=== PATIENT | female | born 1980 | race Caucasian/White ===

== ENCOUNTER 2016-07-27 21:02 | Emergency (ER) | payer OTHER ==
[~2016-07-27] VITALS: Ht 149.9 cm; Wt 90.0 kg
[~2016-07-27 21:02] MED LIST: ATEN25TA PO; CHOL100045 PO; CLARITIN-D PO; DULO30CA50 PO; FLUT9.9S NS; KETO120S TP; NPR500T PO; TRAM50TA2 PO
[2016-07-27 21:06] VITALS: BP 145/104; PULSE 84; RESP 20; O2SAT 98
--- NOTE | 2016-07-27 22:41 | ED.REPORT ---
HPI-Abd Pain F Under 40 Date of Service Jul 27, 2016 ED Provider: Bruno Dumont MD 35 year old female with a history of kidney stones presents to the ER complaining of constant burning left back pain onset yesterday. Pain is different to that associated with prior kidney stones. Patient denies dysuria and other urinary symptoms, nausea, vomiting, cough, lower extremity swelling, and bowel symptoms. Nursing Notes Stated Complaint: LEFT BACK/KIDNEY PAIN Chief Complaint: Female Abdominal Pain Nursing Notes Reviewed: Yes Allergies: Coded Allergies: neomycin (Verified Adverse Reaction, Severe, burning, 04/28/16) Scheduled ([Claritin-D]) 1 TAB PO DAILY Atenolol (Atenolol) 25 Mg Tablet 25 MG PO DAILY Cholecalciferol (Vitamin D3) (Vitamin D) 1,000 Unit Capsule 1,000 UNIT PO DAILY Duloxetine (Duloxetine) 30 Mg Capsule.dr 30 MG PO DAILY Fluticasone Propionate (Flonase Allergy Relief) 50 Mcg/Actuation [place].susp 9.9 ML NS DAILY Ketoconazole (Nizoral) 120 Ml Shampoo 120 ML TP 2X/WEEK Scheduled PRN Cyclobenzaprine (Cyclobenzaprine) 10 Mg Tablet 10 MG PO TID PRN PRN Spasm Naproxen (Naproxen) 500 Mg Tab 500 MG PO BID PRN PRN For Pain Naproxen (Naprosyn) 500 Mg Tablet 500 MG PO BID PRN PRN For Pain Tramadol (Tramadol) 50 Mg Tablet 50 MG PO Q12H PRN PRN For Pain General Time Seen by MD: 22:40 Chief Complaint Flank pain left, Other (Left Back Pain) Hx Obtained From: Patient Arrived By: Walk-in Sudden in Onset?: No Onset Occurred: Yesterday Symptom Duration: Since onset Location: : Back (Left Lower) Quality: Burning, Painful Severity: Current: Moderate Severity: Maximum: Moderate Associated with: Denies: Constipation, Diarrhea, Dysuria, Urinary frequency, Urinary retention, Urinary tract symptoms Pertinent Negative: Pt denies other symptoms Similar Sx Previous: No Past Medical History Past Medical History Migraine headahces Anxiety rotator cuff syndrome arthritis golf and tennis elbow Kidney stones Reports: Hypertension Past Surgical History None Smoking History Never Smoker Social History Alcohol Use: Denies alcohol use Drug Use: Denies drug use Other Social History: , Local resident Occupation 01/27/2016 no work or school Ambulatory Status Independent Review of Systems Constitutional: Denies: Chills, Fever Respiratory: Denies: Non-productive cough, Shortness of breath GI: Denies: Constipation, Diarrhea, Nausea, Vomiting Female: Denies: Dysuria, Flank pain, Hematuria, Incontinence, Pelvic pain, Urinary frequency, Urinary urgency Musculoskeletal: Reports: Back pain (Left) Complete sys rev & neg: except as marked. Physical Exam Initial Vital Signs Vital Signs (First) Date Time Temp Pulse Resp B/P Pulse Ox O2 Delivery O2 Flow Rate FiO2 07/27/16 21:06 36.6 84 20 145/104 98 07/28/16 02:05 Room Air Initial VS: Reviewed Head / Eyes: Atraumatic, Normocephalic Neck: Supple, Non-tender, Full range of motion Extremities: Vascular intact, Neuro intact, No swelling, No tenderness Skin: Warm, Dry, No cyanosis Neurologic: Alert, Oriented, Nonfocal Psychiatric: Mood/affect normal, Behavior normal, Normal thought content General/Constitutional: Awake, Alert, Well developed, Well nourished Respiratory / Chest: Breath sounds NL, Breath sounds = bilat, No respiratory distress, No rales, No rhonchi, No wheezing Cardiovascular: Heart rate NL, Regular rhythm, Heart sounds NL, Peripheral circulation NL Abdomen: Soft, Non-tender, No guarding, No rebound, No distention Back: Full range of motion, No midline vertebral tend Left back office medical assistant to superficial palpation. No rash, no swelling, no bruising. Interpretation & Diagnostics Lab Results Interpretation Result Diagram: 07/27/16 2350 07/27/16 2350 Test 07/27/16 22:47 07/27/16 23:50 07/28/16 00:30 Urine Color Yellow (YELLOW) Urine Appearance Hazy (CLEAR,HAZY) Urine pH 6.0 (5.0-8.0) Urine Specific [place] 1.025 (1.003-1.035) Urine Protein Negativemg/dL (NEG,TRACE) Urine Glucose (UA) Negativemg/dL (NEGATIVE) Urine Ketones Tracemg/dL (NEGATIVE) Urine Occult Blood Trace (NEGATIVE) Urine Nitrite Negative (NEGATIVE) Urine Bilirubin Negative (NEGATIVE) Urine Urobilinogen Normalmg/dL (NORMAL) Urine Leukocyte Esterase Negative (NEGATIVE) Urine RBC 3-10/hpf (0-2) Urine WBC 0-5/hpf (0-5) Urine Epithelial Cells Moderate/hpf (NONE-MOD) Urine Crystals None seen (NONE SEEN) Urine Bacteria None/hpf (NONE-FEW) Urine Hyaline Casts None/lpf (NONE) Urine Granular Casts None seen (NONE SEEN) Urine Waxy Casts None seen (NONE SEEN) Urine Red Blood Cell Casts None seen (NONE SEEN) Urine White Blood Cell Casts None seen (NONE SEEN) Urine Mucus Present (None Seen) Urine Trichomonas None seen (NONE SEEN) Urine Yeast None (NONE SEEN) Urine Culture Reflexed Not indicated White Blood Count 10.0th/mm3 (3.8-10.1) Red Blood Count 4.37mil/mm3 (3.90-5.20) Hemoglobin 13.5g/dL (12.0-15.6) Hematocrit 38.6% (35.0-46.0) Mean Corpuscular Volume 88.3fL (81-100) Mean Corpuscular Hemoglobin 30.9pg (27.0-35.0) Mean Corpuscular Hemoglobin Concent 35.0% (32.0-37.0) Red Cell Distribution Width 13.3% (12.3-15.4) Platelet Count 313bil/L (150-400) Neutrophils (%) (Auto) 53.7% (40-74) Lymphocytes (%) (Auto) 37.7% (14-46) Monocytes (%) (Auto) 6.5% (4-12) Eosinophils (%) (Auto) 1.6% (0-5) Basophils (%) (Auto) 0.2% (0-3) Sodium Level 137mEq/L (134-144) Potassium Level 3.2mEq/L (3.5-5.2) Chloride Level 99mEq/L (97-108) Carbon Dioxide Level 22mmol/L (18-29) Blood Urea Nitrogen 10mg/dL (6-20) Creatinine 0.61mg/dL (0.57-1.00) Estimat Glomerular Filtration Rate 162mL/min (>59) Glucose Level 162mg/dL (60-99) Lactic Acid Level 1.9mmol/L (0.4-2.0) Calcium Level 9.1mg/dL (8.5-10.1) Magnesium Level 2.1mg/dL (1.6-2.6) Total Bilirubin 0.2mg/dL (0.0-1.2) Aspartate Amino Transf (AST/SGOT) 15U/L (0-50) Alanine Aminotransferase (ALT/SGPT) 8U/L (0-32) Alkaline Phosphatase 71U/L (25-150) Total Protein 7.8g/dL (6.4-8.4) Albumin 4.1g/dL (3.4-5.0) Lipase 20U/L (13-60) Prothrombin Time 10.2sec (8.1-12.5) Prothromb Time International Ratio 0.95ratio ECG Interpretation ECG Interpretation: Sinus rhythm, rate 76 Time: 23:14 Interpreted by: ED physician X-Ray Chest Interpretation Chest Xray Interpretation: Negative. View: AP & lat Interpretation / Wet Read by: Wet read ED physician CT Abd / Pelvis Interpretation CONCLUSION: Cyst measuring 2.8cm left ovary. Hysterectomy. Electronically signed by Robi Steele MD Study type: Abdominal CT no contrast Interpretation / Wet Read by: Interpret - Radiologist Re-Eval/Medical Decision Med Decision/Clinical Course Med Decision/Clinical Course: 35-year-old female with left flank pain and is quite superficial. She has a trace of blood in her urine, but it completely negative CT. Exam would suggest this is musculoskeletal in origin. Prior history of stones and hematuria prompted the scan which is negative except for small ovarian cyst. No evidence of bleeding. She is discharged around stable condition with NSAID for pain relief. Recheck with PCP in prompt return if worse, particularly if developing fever, vomiting, or other new symptoms. Re-Evaluation/Progress : Time of Eval: 01:15 Re-Evaluation/Progress Note: Discussed lab and radiology results and plan to discharge. Patient is amenable to the plan. Return precautions given. All other questions addressed. Counseled Regarding: Diagnosis, Lab results, Need for follow-up, When/why to return to ED Discharge & Departure Primary Impression: Flank pain Additional Impression: Ovarian cyst Laterality: left Qualified Code: N83.20 - Unspecified ovarian cysts Disposition: Home Discharge Condition All VS Reviewed: Yes Condition: Stable Patient Instructions: Ovarian Cyst (DC) Additional Instructions: We do not see evidence of a kidney stone or obstructive disease in your urinary tract. You have a small ovarian cyst which is probably not the source of your pain. There are no other findings of concern. The fact that this pain elicits with fairly minimal palpation suggests it is really in the superficial tissues of your flank, meaning the muscle and skin. We will treat this empirically with nonsteroidal anti-inflammatories and a muscle relaxer. Follow-up with your doctor in the office Return if any immediate problems. Referrals: Kiersten Allen (PCP) Scribe Attestation Portions of this note were transcribed by Travis Topete. I, Dr. Dumont, personally performed the history, physical exam and medical decision-making; I reviewed and confirmed the accuracy of the information in the transcribed note. Signed by: Emily Duncan. 07/28/2016 - 01:16 copies to: Kiersten Allen Christopher W MD Jul 27, 2016 22:41 TRAVIS TOPETE Jul 27, 2016 22:45
[2016-07-27] MEDS ORDERED: 0.9% Sodium Chloride 1,000 ML IV ONE (22:54)
[2016-07-27] MEDS ORDERED: Pantoprazole 4 mg/mL 10 mL Inj IVPUSH ONE (22:55)
[2016-07-28 00:08] LABS: BASOPHILS % (AUTO) 0.2 % (0-3); EOSINOPHILS % (AUTO) 1.6 % (0-5); MONOCYTES % (AUTO) 6.5 % (4-12); Mean Corpuscular Hemoglobin 30.9 pg (27.0-35.0); Mean Corpuscular Volume 88.3 fL (81-100); NEUTROPHILS % (AUTO) 53.7 % (40-74); Platelet Count 313 bil/L (150-400)
[2016-07-28 00:10] LABS: APPEARANCE,URINE HAZY (CLEAR,HAZY); COLOR,URINE YELLOW (YELLOW); OCCULT BLOOD,URINE TRACE (NEGATIVE); UROBILINOGEN,URINE NORMAL (NORMAL)
[2016-07-28 00:34] LABS: Magnesium 2.1 mg/dL (1.6-2.6)
[2016-07-28 01:04] LABS: INR 0.95 ratio
[2016-07-28] MEDS ORDERED: CYCL10TA9 PO (01:13)
[2016-07-28] MEDS ORDERED: NAPR500T PO (01:13)
[2016-07-28 02:05] VITALS: BP 118/78; PULSE 68; RESP 14; O2SAT 97
--- NOTE | 2016-07-28 08:54 | DRSVH ---
PROCEDURE: X-RAY CHEST, TWO VIEWS ([id number]) INDICATIONS: left flank pain TECHNIQUE: 2 views of the chest were acquired. COMPARISON: None. FINDINGS: Surgical changes and devices: None. Lungs and pleura: No pleural effusions or pneumothorax. Lungs are clear. Mediastinum: Mediastinal contours are normal. Heart size is normal. Bones and chest wall: No suspicious bony abnormalities. Soft tissues appear unremarkable. IMPRESSION: No acute cardiopulmonary disease. Dictated by: Emmett Stroud [facility] Interpreted: Suzi Mendoza MD on 07/28/2016 at 8:54 Transcribed by: HUSSAIN on 07/28/2016 at 8:54 Approved by: Suzi Mendoza MD, PhD on 07/28/2016 at 16:27
--- NOTE | 2016-07-28 09:49 | DRSVH ---
PROCEDURE: CT ABDOMEN AND PELVIS WITH CONTRAST ([id number]) INDICATIONS: flank pain TECHNIQUE: After the administration of intravenous contrast, 5 mm thick sections acquired from the diaphragm to the symphysis. 5 mm coronal and sagittal reformats were acquired. For radiation dose reduction, the following was used: automated exposure control, adjustment of mA and/or kV according to patient siz e. COMPARISON: None. FINDINGS: Image quality: Excellent. ABDOMEN: Lung bases: Lung bases are clear. Heart size is normal. Solid organs: Liver and spleen are normal in size and enhancement. Gallbladder is contracted. Bili colleen system is non dilated. Pancreas enhances normally. No adrenal nodules. Kidneys demonstrate nor mal size and enhancement, without hydronephrosis. Peritoneum and bowel: Bowel loops demonstrate normal wall thickness and caliber. No free fluid or a ir. The appendix is normal. Nodes and vessels: No retroperitoneal or mesenteric adenopathy by size criteria. Aorta and inferior vena cava are normal in size. Miscellaneous: No ventral hernias. PELVIS: Genitourinary: Bladder wall thickness is normal. 2.8 cm left adnexal cyst is noted. Uterus is absent . Miscellaneous: No inguinal hernias or adenopathy. Bones: No suspicious bony lesions. No vertebral body compression fractures. IMPRESSION: 1. No acute disease process identified. 2. No free fluid or air. 3. No dilated loops of bowel. 4. No hydronephrosis. 5. 2.8 cm left adnexal cyst. Dictated by: Suzi Mendoza MD, PhD on 07/28/2016 at 9:43 Approved by: Suzi Mendoza MD, PhD on 07/28/2016 at 9:48
== END 2016-07-28 02:08 | disposition home or self-care (01) ==
LOC: SED 21:02
DX: R10.9 Unspecified abdominal pain (principal); N83.202 Unspecified ovarian cyst, left side; I10 Essential (primary) hypertension; Z88.1 Allergy status to other antibiotic agents
CPT/HCPCS: 36415; 71020; 74177; 80053; 81000; 83605; 83690; 83735; 85025; 85610; 93005; 96361; 96374; 96375; 99285; J1885; J7030; Q9967